=== PATIENT | male | born 1960 | race Caucasian/White ===

== ENCOUNTER 2021-03-04 01:18 | Emergency (ER) | payer SELFPAY ==
[~2021-03-04] VITALS: Ht 175.3 cm; Wt 71.4 kg
[2021-03-04 01:42] VITALS: BP 159/88
[2021-03-04] MEDS ORDERED: AMOX500C PO (01:58)
[2021-03-04] MEDS ORDERED: IBUPROFEN 600 MG TABLET. PO ONE (02:00)
[2021-03-04] MEDS ORDERED: AMOXICILLIN 250 MG CAPSULE PO ONE (02:00)
[2021-03-04] MEDS ORDERED: IBUPROFEN 800 MG TABLET. PO ONE (02:00)
[2021-03-04] MEDS ORDERED: HYDR-2155 PO (02:00)
[2021-03-04] MEDS ORDERED: HYDROcodone/APAP 5/325MG 1 TAB TABLET PO ONE (02:00)
--- NOTE | 2021-03-04 02:00 | PHYS DOC ---
Adult General Chief Complaint Chief Complaint: DENTAL PROBLEM HPI HPI Patient is a 61-year-old home male who presents with dental pain. States he has bad dentition and has been working with [facility] to help get his teeth in order. States his bottom right 2 molars are scheduled to be extracted but he has been having some intermittent pain over the last couple of days, 7 out of 10, dull and achy in nature. States that his previous visit with a dentist he was not supplied with any pain medication and he is only had Tylenol which only provides minimal relief. Denies any recent fevers, illnesses, pain or trouble swallowing, swelling of the mouth and/or throat and/or tongue, chest pain, shortness of breath, abdominal pain, nausea, vomiting. States he would appreciate some resources in the area for local free clinics and other dentistry offices. Review of Systems Review of Systems Review of systems otherwise unremarkable except noted in HPI Allergies Allergies Allergies Coded Allergies Type Severity Reaction Last Updated Verified codeine Allergy Unknown Itching 03/04/21 Yes diclofenac Allergy Unknown 03/04/21 Yes Physical Exam Physical Exam Constitutional: Well developed, well nourished, no acute distress, non-toxic appearance. [] HENT: Normocephalic, atraumatic, bilateral external ears normal, oropharynx moist, no oral exudates, poor dentition generally with back bottom right to molars broke off at the gumline needing extraction and multiple dental caries nose normal. [] Eyes: conjunctiva normal, no discharge. [] Neck: Normal range of motion, no tenderness, supple, no stridor. [] Cardiovascular:Heart rate regular rhythm, no murmur [] Lungs & Thorax: Bilateral breath sounds clear to auscultation [] Neurologic: Alert and oriented X 3, normal motor function, normal sensory function, no focal deficits noted. [] Psychologic: Affect normal, judgement normal, mood normal. [] EKG EKG [] Radiology/Procedures Radiology/Procedures [] Heart Score C/O Chest Pain: No Risk Factors: Risk Factors: DM, Current or recent (<one month) smoker, HTN, HLP, family history of CAD, obesity. Risk Scores: Risk Factors: DM, Current or recent (<one month) smoker, HTN, HLP, family history of CAD, obesity. Course & Med Decision Making Course & Med Decision Making Patient is a 61-year-old male who presents with dental pain Vital signs not concerning. Physical exam noted above. Patient politely declined dental block. Given oral pain medication and started on amoxicillin in the ED. Given resources for local free clinics, and dentist as well as the emergency dentist. Given good Rx coupon. Given information for local transportation help as well. Advised to call [facility] clinic first thing Friday to update on ED visit and discuss need for tooth extraction sooner than scheduled appointment. Advised to continue Tylenol and ibuprofen as well as Orajel at home for pain control as needed. Gave strict return precautions to the ED. Patient grateful, verbalized understanding and agreed with plan of discharge. [] Dragon Disclaimer Dragon Disclaimer This electronic medical record was generated, in whole or in part, using a voice recognition dictation system. Departure Departure: Impression: Primary Impression: Pain, dental Disposition: HOME / SELF CARE / HOMELESS Condition: GOOD Referrals: COCO BURGESS MD Patient Instructions: Dental Caries-Brief, Dental Pain Additional Instructions: Thank you for coming to the emergency department tonight and allowing us to take care of you. Please continue the Tylenol, ibuprofen and Orajel as discussed. Please take your antibiotics as prescribed and until they are gone. You were given resources for local free clinics, primary care physicians, dentists in transportation as well as food assistance. You are also given a good Rx coupon. Please call your [facility] dental provider first thing Friday to discuss your ED visit and see if you can get an appointment sooner. He can also try the emergency dentist at [phone] as discussed. Please come back to the ED with new or concerning symptoms as discussed. Scripts Hydrocodone Bit/Acetaminophen (HYDROCODONE-APAP 5-325 ) 1 Each Tablet 1 TAB PO BID PRN for dental pain for 5 Days, #10 TAB 0 Refills Prov: MAYURI FRAGA MD 03/04/21 Amoxicillin (AMOXICILLIN) 500 Mg Capsule 1 CAP PO BID for dental pain for 10 Days, #19 CAP Prov: MAYURI FRAGA MD 03/04/21 MAYURI FRAGA MD Mar 04, 2021 02:00
== END 2021-03-04 02:10 | disposition home or self-care (01) ==
LOC: ER 01:18
DX: K02.9 Dental caries, unspecified (principal); Z88.6 Allergy status to analgesic agent
CPT/HCPCS: 99284-25